=== PATIENT | female | born 1955 | race Caucasian/White ===

== ENCOUNTER 2017-05-14 13:56 | Observation (INO) | payer MEDICARE ==
[2017-05-14] MEDS ORDERED: MORPHINE SULFATE 4 MG/ML SYRINGE IV STA (14:21)
[2017-05-14] MEDS ORDERED: SODIUM CHLORIDE 0.9% 1,000 ML IV STA (14:21)
[2017-05-14] MEDS ORDERED: ASPIRIN 81 MG CHEW PO STA (14:21)
[2017-05-14] MEDS ORDERED: NITROGLYCERIN OINT 1 INCH/GM PACKET TOPICAL STA (14:21)
[2017-05-14] MEDS ORDERED: ONDANSETRON 4 MG/2 ML VIAL IVP STA (14:21)
[2017-05-14 14:46] LABS: Basophils # (A) 0.1 k/uL (0-0.2); Basophils % (A) 1 %; CH 31.8; CHCM 33.4; Eosinophils # (A) 0.2 k/uL (0-0.7); Eosinophils % (A) 1 %; HCT 39.9 % (34.0-46.0); HDW 2.36; HGB 13.1 gm/dL (11.4-16.0); Luc # (Auto) 0.22; Luc % (Auto) 2; Lymphocytes # (A) 4.5 k/uL (1.0-4.8); Lymphocytes % (A) 38 %; MCH 31.3 pg (25.0-35.0); MCHC 32.7 g/dL (31.0-37.0); MCV 95.7 fL (80.0-100.0); Mean Platelet Volume 7.3; Monocytes # (A) 0.5 k/uL (0-1.0); Monocytes % (A) 4 %; Neutrophils # (A) 6.5 k/uL (1.3-7.7); Neutrophils % (A) 54 %; RBC 4.17 m/uL (3.80-5.40); RDW 14.3 % (11.5-15.5); WBC (Perox) 11.66
--- NOTE | 2017-05-14 14:50 | XR ---
EXAMINATION TYPE: XR chest 2V DATE OF EXAM: 05/14/2017 COMPARISON: NONE TECHNIQUE: PA and lateral views submitted. HISTORY: Chest pain FINDINGS: The lungs are clear and there is no pneumothorax, pleural effusion, or focal pneumonia. Mild hypert rophic change of the spine. Biapical pleural thickening. Arthropathy of the AC joints. IMPRESSION: 1. No acute process.
[2017-05-14 14:57] LABS: ALT 28 U/L (9-52); AST 19 U/L (14-36); Alkaline Phosphatase 106 U/L (38-126); Anion Gap 10 mmol/L; Blood Urea Nitrogen 11 mg/dL (7-17); Calcium 9.5 mg/dL (8.4-10.2); Carbon Dioxide 26 mmol/L (22-30); Chloride 106 mmol/L (98-107); Glucose 113 mg/dL (74-99); Magnesium 2.2 mg/dL (1.6-2.3); Non-African American GFR(MDRD) >60 (>60 ml/min/1.73 sqM); Potassium 3.6 mmol/L (3.5-5.1); Sodium 142 mmol/L (137-145); Total Bilirubin 0.7 mg/dL (0.2-1.3); Total Protein 7.3 g/dL (6.3-8.2)
[2017-05-14 15:02] LABS: Creatine Kinase 55 U/L (30-135)
[2017-05-14 15:16] LABS: Creatine Kinase MB 0.6 ng/mL (0.0-2.4); Troponin I <0.012 ng/mL (0.000-0.034)
[2017-05-14 15:18] LABS: INR 0.9 (<1.1); Partial Thromboplastin Time 24.1 sec (22.0-30.0); Prothrombin Time 9.5 sec (9.0-12.0)
--- NOTE | 2017-05-14 15:55 | ED ---
Chest Pain HPI - General Chief Complaint: Chest Pain Stated Complaint: chest pain Time Seen by Provider: 05/14/17 14:09 Source: patient Mode of arrival: ambulatory Limitations: no limitations - History of Present Illness Initial Comments: Chest pain since 8 PM today is quite constant it's nonradiating, is located on the left chest no nausea no vomiting no cold sweats no shortness of breath no pleuritic chest pain. She denies any history of for coronary artery disease. She does have a history of heart disease in her family her dad had KS at the age of 68 systolic KS at the age of 59 and she has smoked for greater than 40 years. This pain is 5-6/10 at this point - Related Data Home Medications Medication Instructions Recorded Confirmed Atorvastatin [Lipitor] 10 mg PO HS 05/14/17 05/14/17 Cyanocobalamin (Vitamin B-12) 1,000 mcg PO HS 05/14/17 05/14/17 [Vitamin B-12] Levothyroxine Sodium [Synthroid] 88 mcg PO DAILY 05/14/17 05/14/17 Vitamin E Acetate [Vitamin E] 200 unit PO HS 05/14/17 05/14/17 traZODone HCL 150 mg PO HS 05/14/17 05/14/17 Allergies Allergy/AdvReac Type Severity Reaction Status Date / Time Beta-Blockers AdvReac RAPHAEL/ASTHMA Verified 05/14/17 14:44 (Beta-Adrenergic Bloc ATTACK Review of Systems ROS Statement: Those systems with pertinent positive or pertinent negative responses have been documented in the HPI. ROS Other: All systems not noted in ROS Statement are negative. EKG Findings - EKG Comments: EKG Findings:: EKG is normal sinus rhythm ventricular rate is 91 ID interval is 136 QRS duration is 86 QT/QTc is 386/74. This EKG does not reveal any ST elevation or ST depression Past Medical History Past Medical History: Hyperlipidemia, Thyroid Disorder Additional Past Medical History / Comment(s): insomnia History of Any Multi-Drug Resistant Organisms: None Reported Past Surgical History: Appendectomy Additional Past Surgical History / Comment(s): thyroid Past Psychological History: Anxiety Smoking Status: Current every day smoker Past Alcohol Use History: None Reported Past Drug Use History: None Reported General Exam - General Exam Comments Initial Comments: General: The patient is awake and alert, in no distress, and does not appear acutely ill. looks bit anxious Skin: Skin is warm and dry and no rashes or lesions are noted. Eye: Pupils are equal, round and reactive to light, extra-ocular movements are intact; there is normal conjunctiva bilaterally. Ears, nose, mouth and throat: There are moist mucous membranes and no oral lesions. Neck: The neck is supple, there is no tenderness or JVD. Cardiovascular: There is a regular rate and rhythm. No murmur, rub or gallop is appreciated. Respiratory: To auscultation bilateral, exam is consistent with moderate to severe COPD Gastrointestinal: Soft, non-distended, non-tender abdomen without masses or organomegaly noted. There is no rebound or guarding present. Bowel sounds are unremarkable. Back: There is no tenderness to palpation in the midline. There is no obvious deformity. Musculoskeletal: Normal ROM, no tenderness, There is no pedal edema. There is no calf tenderness or swelling. No cords were appreciated. Neurological: CN II-XII intact, Cranial nerves III through XII are intact. There are no obvious motor or sensory deficits. Coordination appears grossly intact. Speech is normal. Psychiatric: Cooperative, appropriate mood & affect, normal judgment. Limitations: no limitations Course Vital Signs 05/14/17 05/14/17 14:05 15:01 Temperature 97.6 F Pulse Rate 91 75 Respiratory 20 18 Rate Blood Pressure 123/81 106/64 O2 Sat by Pulse 98 100 Oximetry - Reevaluation(s) Reevaluation #1: 05/14/17 16:15 Was reassessed at 12 1600, white count is slightly elevated d-dimer is negative troponin is negative EKG, compressive metabolic or negative along with the chest x-ray she still continued to have her chest pain. Considering she is 61 and she has smoked for greater than 40 years and she also has a family history of heart disease she should be hospitalized see return agent and will require and heparinize Critical Care Time Total Critical Care Time: 30 Critical Care Time: Considering her multiple risk factors or radiation of smoking or family history and continuous chest pain in the ER she still will be heparinized cardiology be consulted and she be admitted to Dr. Oshea service Disposition Clinical Impression: Chest pain Disposition: ADMITTED IP TO THIS HOSP Condition: Good Referrals: Christine Wynne III, MD [Primary Care Provider] - 1-2 days
[2017-05-14] MEDS ORDERED: HEPARIN SODIUM,PORCINE 5,000 UNIT/ML 1 ML VIAL IV ONE (16:17)
[2017-05-14] MEDS ORDERED: NITROGLYCERIN SL TABS 0.4 MG TAB SUBLINGUAL PRN (16:17)
[2017-05-14] MEDS ORDERED: MORPHINE SULFATE 2 MG/ML SYRINGE IVP PRN (16:17)
[2017-05-14] MEDS ORDERED: HEPARIN SODIUM,PORCINE/D5W PMX 25,000 UNIT in DEXTROSE/WATER 1 500ML.BAG IV SCH (16:30)
[2017-05-14] MEDS: SODIUM CHLORIDE 0.9% 1,000 ML IV SCH (18:43)
[2017-05-14 20:12] LABS: Creatine Kinase 43 U/L (30-135)
[2017-05-14 20:24] LABS: Creatine Kinase MB 0.5 ng/mL (0.0-2.4); Troponin I <0.012 ng/mL (0.000-0.034)
[2017-05-14] MEDS ORDERED: traZODone HCL 50 MG TAB PO SCH (21:00)
[2017-05-14] MEDS ORDERED: CYANOCOBALAMIN 500 MCG TAB PO SCH (21:00)
[2017-05-14] MEDS ORDERED: VITAMIN E (DL,TOCOPHERYL ACET) 400 UNIT CAP PO SCH (21:00)
[2017-05-14] MEDS ORDERED: ATORVASTATIN 40 MG TAB PO SCH (21:00)
[2017-05-15 01:58] LABS: Creatine Kinase 40 U/L (30-135)
[2017-05-15 02:12] LABS: Creatine Kinase MB 0.6 ng/mL (0.0-2.4); Troponin I <0.012 ng/mL (0.000-0.034)
[2017-05-15] MEDS: SODIUM CHLORIDE 0.9% 1,000 ML IV SCH (05:41)
[2017-05-15] MEDS ORDERED: LEVOTHYROXINE 88 MCG TAB PO SCH (06:30)
[2017-05-15 06:59] LABS: Cholesterol 145 mg/dL (<200); Triglycerides 75 mg/dL (<150)
[2017-05-15] MEDS ORDERED: ASPIRIN 325 MG TAB PO SCH (09:00)
--- NOTE | 2017-05-15 09:04 | CONS ---
DATE OF CONSULTATION: Attending, Dr. Wynne: Mrs. Jones is a 61-year-old female with no prior documented history of coronary artery disease who yesterday had an episode of chest discomfort started around 8:00 in the morning lasted until 2:00, better when she rubs on her chest. Because of that she came into the emergency room and subsequently admitted. At the time of my evaluation, she is feeling well. Patient is reasonably active physically, but has been under increased amount of stress and apparently had similar symptoms about a month or so ago in a similar stressful situation. She has no significant dyspnea on exertion. No dizziness. No palpitation. No syncope. No PND or orthopnea or peripheral edema. Her coronary risk factors are positive for smoking about a pack a day. She is not hypertensive. No diabetes documented in the past. She has hyperlipidemia. Her medications at include: Trazodone, vitamin E, levothyroxine, Lipitor 10 mg daily and vitamin B12. REVIEW OF SYSTEMS: RESPIRATORY SYSTEM: She has no recent wheezing. No cough. No history of obstructive lung disease. GI SYSTEM: No recent GI bleeding. No peptic ulcer disease. SYSTEM: No dysuria or hematuria. NERVOUS SYSTEM: No stroke or seizure. PHYSICAL EXAMINATION: She is a 61-year-old female, alert, oriented, in no apparent distress. Blood pressure 113/72 with the heart rate in the 60s. HEAD: Normocephalic. EYES: Sclerae anicteric. NECK: Good upstroke. No bruit. No jugular venous distention. LUNGS: Clear to auscultation. HEART: Regular rate and rhythm. S1, S2, no S3, no rub. Chest wall with mild chest wall tenderness. ABDOMEN: Soft, nontender. EXTREMITIES: No edema. Lab data revealed BUN and creatinine 11 and 0.92. Potassium 3.6. Troponin less than 0.012 for 3 samples. Hemoglobin is 13.1. EKG revealed a sinus mechanism, normal axis with RSR prime with no acute changes. Chest x-ray revealed no evidence of abnormalities. IMPRESSION: 1. Chest discomfort, has some atypical feature for ischemic heart disease, probable musculoskeletal in etiology. 2. History of hyperlipidemia. 3. Chronic tobacco use. RECOMMENDATIONS: I will stop the heparin and proceed with stress echocardiogram. If there is no evidence of inducible ischemia, then no further cardiac workup will be needed. Thank you for this consult. We will follow with you.
[2017-05-15 10:55] LABS: HDL Cholesterol 67 mg/dL (40-60)
[2017-05-15 12:09] VITALS: BP 123/77; PULSE 80; RESP 16; TEMP 98.3
--- NOTE | 2017-05-15 13:51 | ECHOS ---
DATE OF SERVICE: 05/15/2017 AGE: 61Y SEX: F HT: 69" WT: 199 lbs. Protocol Rob: X Others: Stress Echo Stage: 2 Dur. of Exercise: 4:00 *Heart Rate Blood Pressure *Rest: 76 Rest: 118/59 * *Max. Achieved: 143 Maximum BP: 158/57 85% PMHR: 136 100% PMHR: 160 *METS: 6.4 INDICATIONS: Chest pain. MEDICATIONS: Synthroid, Trazodone, atorvastatin. Patient was exercised for a total period of 4 minutes. A peak heart rate of 143 was achieved. Maximum blood pressure of 158/57 mmHg was noted. Resting EKG shows normal sinus rhythm with normal MN interval and QRS duration and normal ST-T waves. No ST segment depression suggestive of ischemia is noted. The baseline echocardiographic images reveals normal left ventricular chamber size with normal left ventricular systolic function. In the immediate postexercise period, normal increase in the wall thickness and contractility is noted. FINAL IMPRESSION: This stress echocardiographic study is negative for stress-induced ischemia. EKG portion of the stress test is not suggestive of ischemia. Patient's exercise tolerance is below-average.
--- NOTE | 2017-05-15 15:30 | HP ---
DATE OF ADMISSION: This dictation is both H&P and Discharge Summary. A 61-year-old female patient came in with complaints of chest pain which appears to be musculoskeletal in nature which is reproducible chest pain, lasted from 8 a.m. in the morning to 2 p.m. in the afternoon. Patient denied any shortness of breath, diaphoresis. Patient's chest pain is nonpleuritic, not associated with food, denied any cough, runny nose. Patient underwent stress test, if it is negative, patient will be discharged. Patient was evaluated by Cardiology. Patient was ruled out acute coronary artery syndromes and EKG and troponins are negative. EKG is no significant abnormality. No orthopnea, PND. REVIEW OF SYSTEMS: CONSTITUTIONAL: No fever, no malaise, no fatigue. HEENT: No recent visual problems or hearing problems. Denied any sore throat. CARDIOVASCULAR: As described in HPI. PULMONARY: No shortness of breath, no cough, no hemoptysis. GASTROINTESTINAL: No diarrhea, no nausea, no vomiting, no abdominal pain. Normoactive bowel sounds. NEUROLOGICAL: No headaches, no weakness, no numbness. HEMATOLOGICAL: Denies any bleeding or petechiae. GENITOURINARY: Denies any burning micturition, frequency, or urgency. MUSCULOSKELETAL/RHEUMATOLOGICAL: Denies any joint pain, swelling, or any muscle pain. ENDOCRINE: Denies any polyuria or polydipsia. The rest of the 14 point review of systems is negative. PAST MEDICAL HISTORY: Significant for hyperlipidemia, hypothyroidism, osteoarthritis, appendectomy, section, hysterectomy, claustrophobia, motion sickness, anxiety disorder. FAMILY HISTORY: Denied any premature coronary artery disease. Mom at age 93. No significant medical problems in her mother. SOCIAL HISTORY: The patient does smoke 1 pack per day. Denied any alcohol abuse or any drug abuse. PHYSICAL EXAMINATION: Temperature 99.2, pulse 82, respiratory rate of 16, blood pressure is 104/73, saturating at 91% on room air. GENERAL: The patient is alert and oriented x3, not in any acute distress. Well developed, well nourished. HEENT: Pupils are round and equally reacting to light. EOMI. No scleral icterus. No conjunctival pallor. Normocephalic, atraumatic. No pharyngeal erythema. No thyromegaly. CARDIOVASCULAR: S1 and S2 present. No murmurs, rubs, or gallops. PULMONARY: Patient has good air entry into bilateral lung levy. No wheezing was appreciated. No crackles. ABDOMEN: Soft, nontender, nondistended, normoactive bowel sounds. No palpable organomegaly. MUSCULOSKELETAL: Patient does have pedal edema bilaterally, appears to have some chronic venostasis dermatosis. EXTREMITIES: No cyanosis, clubbing, or pedal edema. NEUROLOGICAL: Gross neurological examination did not reveal any focal deficits. SKIN: No rashes. LABORATORY DATA: CBC and BMP are abnormal for elevated WBC count of 12,000. D-dimer is negative. Chest x-ray did not show any pneumonic process. ASSESSMENT AND PLAN: 1. Chest pain. Rule out acute coronary artery syndrome. Patient underwent stress test. Patient will be discharged today, probably musculoskeletal in nature. 2. Leukocytosis. No signs or symptoms of infection. Appeared to be reactive response. 3. Hyperlipidemia. 4. Nicotine abuse. Patient will continue her home medication. Patient is on atorvastatin for that. Patient will continue with that. 5. Hypothyroidism. Continue with levothyroxine. Further management as an outpatient. 6. Nicotine abuse. Extensive counseling regarding that was provided and then patient will be discharged today to follow with primary care physician, Dr. Radha Wynne in 3 to 7 days. Activity as tolerated. Cardiac diet. 7. Nicotine cessation counseling was provided. This dictation is both H&P and discharge summary. [facility]
== END 2017-05-15 14:37 | disposition home or self-care (01) ==
LOC: EC 13:56 → 3OBS 16:17
PROVIDERS: ADMIT Hospitalist; ATTEND Hospitalist
DX: R07.9 Chest pain, unspecified (principal); D72.829 Elevated white blood cell count, unspecified; E78.5 Hyperlipidemia, unspecified; Z71.6 Tobacco abuse counseling; E03.9 Hypothyroidism, unspecified; F41.9 Anxiety disorder, unspecified; I25.9 Chronic ischemic heart disease, unspecified; F40.240 Claustrophobia; Z79.899 Other long term (current) drug therapy; F17.210 Nicotine dependence, cigarettes, uncomplicated; Z82.49 Family history of ischemic heart disease and other diseases of the circulatory system; Z90.710 Acquired absence of both cervix and uterus
CPT/HCPCS: 96375 ×3; 96376 ×2; 96365 ×2; 99291 ×2; 96366; 96367; 36415; 93005; 93017; 93350; 85379; 80061; 80053; 82550 ×2; 82553 ×2; 83735; 84484 ×2; 85025; 85610; 85730 ×2; 71020; G0378 ×2; J2270; J1644 ×2; J2405

== ENCOUNTER → 2017-11-19 | Outpatient (CLI) | payer MEDICARE ==
--- NOTE | 2017-11-20 09:07 | MM ---
Reason for exam: screening (asymptomatic). Last mammogram was performed 10 years and 11 months ago. History: Patient is postmenopausal. Physical Findings: A clinical breast exam by your physician is recommended on an annual basis and results should be correlated with mammographic findings. MG Screening Mammo w CAD Bilateral CC and MLO view(s) were taken. Prior study comparison: January 03, 2007, CAD bilateral diagnostic mammogram. There are scattered fibroglandular densities. There are typically benign round calcifications bilaterally. Focal asymmetry 6mm anterior outer aspect. This finding is changed when compared with previous exams. ASSESSMENT: Incomplete: need additional imaging evaluation, BI-RAD 0 RECOMMENDATION: Special view mammogram of the left breast. If lesion persists on supplemental views, image directed ultrasound is recommended. [facility] will attempt to contact patient to return for supplemental views and ultrasound if indicated.
== END | disposition home or self-care (01) ==
LOC: RADMAMWWP 13:00
PROVIDERS: ATTEND Family Medicine
DX: Z12.31 Encounter for screening mammogram for malignant neoplasm of breast (principal)

== ENCOUNTER → 2018-12-03 | Outpatient (CLI) | payer MEDICARE ==
--- NOTE | 2018-12-03 15:09 | XR ---
EXAMINATION TYPE: XR knee complete LT DATE OF EXAM: 12/03/2018 COMPARISON: NONE HISTORY: Pain TECHNIQUE: Four views are submitted. FINDINGS: Joint spaces are preserved. Osseous structures are intact. No acute fracture seen. Small suprapate llar bursal fluid collection. IMPRESSION: 1. No acute fracture or dislocation. Small suprapatellar bursal fluid collection. Correlate with MRI if there is concern for internal derangement.
== END ==
LOC: RADXRMAIN 13:23
PROVIDERS: ATTEND Physician Assistant Medical
DX: M17.12 Unilateral primary osteoarthritis, left knee (principal)

== ENCOUNTER → 2019-01-05 | Outpatient (CLI) | payer MEDICARE ==
--- NOTE | 2019-01-05 09:56 | MM ---
Reason for exam: additional evaluation requested from prior study. Last mammogram was performed 1 year and 2 months ago. History: Patient is postmenopausal. Physical Findings: Nurse did not find any significant physical abnormalities on exam. MG 3D Diag Mammo W/Cad SARAY Bilateral CC and MLO view(s) were taken. Prior study comparison: November 19, 2017, bilateral MG screening mammo w CAD. January 03, 2007, CAD bilateral diagnostic mammogram. The breast tissue is heterogeneously dense. This may lower the sensitivity of mammography. There are benign appearing round calcifications bilaterally. There is chronic nodularity bilaterally, greater in the right breast. There is no dominant lesion. These results were verbally communicated with the patient and result sheet given to the patient on 01/05/19. ASSESSMENT: Benign, BI-RAD 2 RECOMMENDATION: Routine screening mammogram of both breasts in 1 year.
== END ==
LOC: RADMAMWWP 08:49
PROVIDERS: ATTEND Family Medicine
DX: R92.8 Other abnormal and inconclusive findings on diagnostic imaging of breast (principal)
CPT/HCPCS: 77066; G0279; 77062

== ENCOUNTER → 2019-09-28 | Outpatient (CLI) | payer MEDICARE ==
--- NOTE | 2019-09-28 16:23 | MR ---
EXAMINATION TYPE: MR knee LT wo con DATE OF EXAM: 09/28/2019 COMPARISON: None HISTORY: Left knee pain TECHNIQUE: Multiplanar, multisequence images of the knee is performed without IV contrast. FINDINGS: MEDIAL MENISCUS: Mild diffuse uptake is within the posterior horn medial meniscus. This hasn't angula beto course in the posterior horn without communication with the articular surface. Anterior horn medi al meniscus appears normal. LATERAL MENISCUS: There is increased signal within the anterior portion posterior horn lateral menisc us compatible with internal derangement. Anterior horn of the lateral meniscus is normal. CRUCIATE LIGAMENTS: The anterior and posterior cruciate ligaments are intact and unremarkable. COLLATERAL LIGAMENTS: The medial collateral ligament and lateral collateral ligament complex are inta ct and unremarkable. EXTENSOR MECHANISM: Visualized quadriceps and patellar tendons are intact. EFFUSION: Small joint effusion is present. POPLITEAL CYST: No popliteal/schmid cyst. TRICOMPARTMENT SPACES: Joint spaces appear preserved. CARTILAGE: Articular cartilage appears preserved. BONE MARROW SIGNAL: No focal abnormal marrow signal is appreciated. OTHER: No additional significant abnormality is appreciated. IMPRESSION: 1. Type I internal arrangement posterior horns medial and lateral menisci. 2. Small joint effusion.
== END | disposition home or self-care (01) ==
LOC: RADMRIMAIN 13:20
PROVIDERS: ATTEND Orthopaedic Surgery
DX: M25.462 Effusion, left knee (principal)

== ENCOUNTER → 2019-10-30 | Outpatient (CLI) | payer MEDICARE ==
[2019-10-30 16:17] LABS: Basophils % (A) 0 %; Eosinophils # (A) 0.1 k/uL (0-0.7); Eosinophils % (A) 1 %; HCT 39.1 % (34.0-46.0); HGB 13.1 gm/dL (11.4-16.0); Lymphocytes % (A) 35 %; MCH 31.3 pg (25.0-35.0); MCHC 33.4 g/dL (31.0-37.0); MCV 93.6 fL (80.0-100.0); Mean Platelet Volume 7.5; Monocytes # (A) 0.3 k/uL (0-1.0); Monocytes % (A) 4 %; Neutrophils % (A) 58 %; Platelet Count 236 k/uL (150-450); RBC 4.18 m/uL (3.80-5.40); RDW 13.9 % (11.5-15.5); WBC 8.6 k/uL (3.8-10.6)
[2019-10-30 16:31] LABS: Potassium 3.7 mmol/L (3.5-5.1)
== END ==
LOC: LABPAT 14:50
PROVIDERS: ATTEND Orthopaedic Surgery
DX: Z01.818 Encounter for other preprocedural examination (principal); M23.92 Unspecified internal derangement of left knee; R94.31 Abnormal electrocardiogram [ECG] [EKG]
CPT/HCPCS: 80051; 85025; 93005

== ENCOUNTER → 2019-11-20 | Day surgery (SDC) | payer MEDICARE ==
[2019-11-18 10:49] VITALS: BMI 25.8
--- NOTE | 2019-11-19 10:09 | HP ---
HISTORY AND PHYSICAL CHIEF COMPLAINT: Left knee pain. HISTORY OF PRESENT ILLNESS: Patient is a 63-year-old retired female who presents with progressive left knee pain for the past several months. She notes anterior medial pain along with intermittent locking. She has tried medications in addition to activity modifications without much relief. She notes it does limit her. PAST MEDICAL HISTORY: Significant for hypothyroidism. PAST SURGICAL HISTORY: Negative. CURRENT MEDICATIONS: 1. Aleve. 2. Atorvastatin. 3. Levothyroxine. 4. Tramadol. 5. Trazodone. ALLERGIES: She has sensitivity to BETA WENDY, however, gerard drug allergy. FAMILY HISTORY: Significant for heart disease. SOCIAL HISTORY: Significant for one pack per day tobacco use. REVIEW OF SYSTEMS: Sixteen-point review of systems otherwise reviewed and is noncontributory. PHYSICAL EXAMINATION: On examination today, the patient is approximately 5 feet 9 inches, 180 pounds of mesomorphic habitus. HEENT exam is nonfocal. Neck is supple. She has painless passive motion of left hip. Straight leg raise is negative. Active motion left knee -10 to 135 degrees of flexion. She has a mild effusion. She is tender about the lateral joint line. Collaterals are stable, Gillian is negative, Red's elicits lateral pain. Her distal neurovascular exam appears intact in the left lower extremity. MRI report, 09/28/2019, left knee shows evidence of increased signal involving the posterior horn of the medial and lateral menisci along with a defect involving the distal medial femoral condyle. IMPRESSION: 1. Internal derangement left knee possible lateral meniscal tear and medial femoral condyle chondral injury. 2. Left knee tricompartmental osteoarthrosis. RECOMMENDATIONS: I talked to the patient at length regarding her condition along with treatment options. At this point, she is symptomatic, having pain and mechanical symptoms that limit her. After a thorough discussion, she opts to proceed with surgery. We will proceed with arthroscopic evaluation with possible partial lateral meniscectomy in addition to medial femoral chondrectomy. The risks and benefits were discussed at length in layman's terms. We will likely perform that as an outpatient procedure. MMODL / IJN: [id number] /
[~2019-11-20] MED LIST: DEXAMETHASONE SOD PHOS (MDV) 100 MG/10 ML VIAL ONE; DEXAMETHASONE SOD PHOSPHATE 10 MG/ML 1 ML VIAL IV ONE; EPINEPHrine (PF) 1 ML in SODIUM CHLORIDE 0.9% IRRIGATIO 3,000 ML IRRIGATION ONE; HYDROcodone/APAP 5-325MG 1 EACH TAB PO ONE; HYDROmorphone 0.5 MG/0.5 ML SYRINGE IVP PRN; KETOROLAC 30 MG/ML 1 ML VIAL ONE; LACTATED RINGERS 1,000 ML IV ONE; LACTATED RINGERS 1,000 ML IV SCH; LIDOCAINE 1% 20 ML VIAL (10MG/ML) FOR IV START INTRADERMA ONE; MIDAZOLAM 2 MG/2 ML VIAL IV PRN; MIDAZOLAM 2 MG/2 ML VIAL ONE; PROPOFOL 10 MG/ML 20 ML VIAL IV ONE; SCOPOLAMINE 1.5MG/72HR PATCH TRANSDERM ONE; ePHEDrine SULFATE/0.9% NACL/PF 50 MG/5 ML SYRINGE IV ONE; fentaNYL (PF) 50 MCG/ML 2 ML AMP ONE
[2019-11-20 08:46] VITALS: TEMP 97.6
[2019-11-20] MEDS: ONDANSETRON 4 MG/2 ML VIAL IVP ONE ×2 (09:10→11:20)
--- NOTE | 2019-11-20 11:00 | P.OP ---
Date of Procedure: 11/20/19 Preoperative Diagnosis: left knee internal derangement Postoperative Diagnosis: left knee posterior medial meniscal tear/posterior lateral meniscal tear/grade 3 chondral injury medial femoral condyle Procedure(s) Performed: left knee arthroscopic partial medial meniscectomy/partial lateral meniscectomy/medial femoral chondrectomy/microfracture medial femoral condyle Anesthesia: CLARE Surgeon: Serafin Lim Estimated Blood Loss (ml): 10 Pathology: none sent Condition: stable Disposition: PACU Indications for Procedure: The patient is a 63-year-old female presents with persistent/progressive left knee pain and mechanical symptoms despite conservative measures. A discussion of the risks and benefits of operative intervention versus continued conservative measures was made with patient. She opted to proceed with surgery. Operative risks to include infection, neurovascular injury, development of blood clots, possible incomplete resolution of symptoms, possible worsening symptoms and need for subsequent procedures was discussed. Informed consent was obtained. Operative Findings: as below Description of Procedure: The patient was brought to the operating room, and after induction of general anesthesia examined the left knee. Collaterals were stable, Gillian was negative, and posterior drawer was negative. The left lower extremity was prepped and draped in a normal fashion. A lateral portal was made through a 5 mm vertical skin incision lateral to the patella tendon above the joint line. Diagnostic arthroscopy was performed. On inspection of the medial compartment, and oblique tear involving the posterior horn medial meniscus in the white-white junction was noted]. This was debrided back to stable base with straight baskets and a motorized shaver. a grade 3 chondral injury involving the central posterior portion of the medial femoral condyle was noted with a loose chondral fragment. This was debrided back to stable base with a motorized shaver. Microfracture was performed with a power pick breeching the subchondral surface down to the bone marrow elements. On inspection of the notch, the anterior cruciate ligament appeared to be intact. On inspection of the lateral compartment, and oblique tear involving the posterior most aspect of the lateral meniscus in the white-red junction was noted. this was not amenable to repair. This debrided back to stable base with straight baskets and a motorized shaver. On inspection of the patellofemoral articulation, grade 2 chondral changes were noted diffusely however no loose cartilage fragments were present. The gutters were clear debris. The knee was then thoroughly irrigated. The portals were closed with Steri-Strips. A sterile dressing was applied in addition to a compression stocking. The patient was awoken from general anesthesia and transferred to recovery room in good condition. Blood loss was estimated at 10 mL. No complications were incurred.
[2019-11-20 11:35] VITALS: BP 116/71; PULSE 96; RESP 17
== END | disposition home or self-care (01) ==
LOC: OR 08:24
PROVIDERS: ATTEND Orthopaedic Surgery
DX: S83.282A Other tear of lateral meniscus, current injury, left knee, initial encounter (principal); S83.242A Other tear of medial meniscus, current injury, left knee, initial encounter; S83.32XA Tear of articular cartilage of left knee, current, initial encounter; X58.XXXA Exposure to other specified factors, initial encounter; E03.9 Hypothyroidism, unspecified; E78.5 Hyperlipidemia, unspecified; M19.90 Unspecified osteoarthritis, unspecified site; F17.210 Nicotine dependence, cigarettes, uncomplicated; Z90.710 Acquired absence of both cervix and uterus; Z79.1 Long term (current) use of non-steroidal anti-inflammatories (NSAID); Z79.890 Hormone replacement therapy; Z79.891 Long term (current) use of opiate analgesic; Z79.899 Other long term (current) drug therapy; Z88.8 Allergy status to other drugs, medicaments and biological substances
CPT/HCPCS: 29880; 29879; J2250; J1100 ×2; J0690; J2405; J0171; J3010; J1885; J2704; J1170

== ENCOUNTER → 2020-02-17 | Outpatient (CLI) | payer MEDICARE ==
--- NOTE | 2020-02-18 09:10 | MM ---
Reason for exam: screening (asymptomatic). Last mammogram was performed 1 year and 1 month ago. History: Patient is postmenopausal. Physical Findings: A clinical breast exam by your physician is recommended on an annual basis and results should be correlated with mammographic findings. MG 3D Screening Mammo W/Cad Bilateral CC and MLO view(s) were taken. XCCL view(s) were taken of the right breast. Prior study comparison: January 05, 2019, bilateral MG 3d diag mammo w/cad SARAY. November 19, 2017, bilateral MG screening mammo w CAD. The breast tissue is heterogeneously dense. This may lower the sensitivity of mammography. There are benign appearing round dystrophic calcifications bilaterally. There is no discrete abnormality. ASSESSMENT: Benign, BI-RAD 2 RECOMMENDATION: Routine screening mammogram of both breasts in 1 year.
== END | disposition home or self-care (01) ==
LOC: RADMAMWWP 12:34
PROVIDERS: ATTEND Family Medicine
DX: Z12.31 Encounter for screening mammogram for malignant neoplasm of breast (principal)
CPT/HCPCS: 77063; 77067

== ENCOUNTER → 2020-06-02 | Outpatient (CLI) | payer MEDICARE ==
--- NOTE | 2020-06-03 07:45 | US ---
EXAMINATION TYPE: US thyroid st tissue head/neck DATE OF EXAM: 06/02/2020 COMPARISON: NONE CLINICAL HISTORY: E03.9 HYPOTHYROIDISM. Thyroidectomy 8-9 years ago, hypothyroidism GLAND SIZE: Right Lobe: Surgically absent Left Lobe: Surgically absent NODULES RIGHT: # of nodules measured on right: 0 LEFT: # of nodules measured on left: 0 ISTHMUS: # of nodules measured in the isthmus: 0 Bilateral neck scanned, lymph nodes left neck with largest = 2.3cm Ultrasound performed in the thyroid bed. No residual thyroid tissue is present. IMPRESSION: Postop change.
== END ==
LOC: RADUSWWP 15:41
PROVIDERS: ATTEND Family Medicine
DX: E03.9 Hypothyroidism, unspecified (principal); Z98.890 Other specified postprocedural states
CPT/HCPCS: 76536

== ENCOUNTER 2022-01-28 11:09 | Emergency (ER) | payer MEDICARE ==
[2022-01-28 11:29] VITALS: RESP 16
[2022-01-28] MEDS ORDERED: SODIUM CHLORIDE 0.9% 1,000 ML IV STA (11:55)
[2022-01-28] MEDS ORDERED: ONDANSETRON 4 MG/2 ML VIAL IVP STA (12:10)
[2022-01-28] MEDS ORDERED: MORPHINE SULFATE 4 MG/ML SYRINGE IV STA (12:10)
--- NOTE | 2022-01-28 12:16 | ED ---
Abdominal Pain HPI - General Chief Complaint: Abdominal Pain Stated Complaint: Groin Pain/Low Sugar Time Seen by Provider: 01/28/22 11:53 Source: patient, RN notes reviewed Mode of arrival: ambulatory Limitations: no limitations - History of Present Illness Initial Comments: Right lower quadrant abdominal pain for one week. Was vomiting at onset. Zabrina ent states she also had a fever early in the week. No headache, no fever or chills, no changes in vision or hearing, no sore throat or difficulty with speech, no neck pain, no chest pain or shortness of breath, no changes in urination or bowel movements, no numbness or tingling, no extr emity pain, no skin rashes or lesions. MD Complaint: abdominal pain Onset/Timin -: week(s) Location: RLQ Radiation: other (Midabdomen) Migration to: no migration Severity: moderate Severity scale (1-10): 6 Quality: dull Consistency: constant Improves With: nothing Worsens With: other (Palpation, position) Associated Symptoms: nausea, vomiting, constipation (Patient did have a bowel movement this morning and is passing gas) - Related Data Home Medications Medication Instructions Recorded Confirmed Atorvastatin [Lipitor] 20 mg PO HS 05/14/17 11/20/19 Levothyroxine Sodium [Synthroid] 88 mcg PO QAM 05/14/17 11/20/19 traZODone HCL 200 mg PO HS 05/14/17 11/20/19 Vit C/E/Zn/Coppr/Lutein/Zeaxan 1 each PO DAILY 11/18/19 11/20/19 [Preservision Areds 2 Softgel] traMADol HCL 50 mg PO HS 11/18/19 11/20/19 Previous Rx's Medication Instructions Recorded Hydrocodone/Acetaminophen [[place] 1 each PO Q6HR PRN #15 tab 11/20/19 5-325] Acetaminophen [Tylenol] 500 mg PO Q4-6H PRN #24 tab 01/28/22 Amoxicillin/Potassium Clav 1 each PO Q12HR #20 tab 01/28/22 [Augmentin 875-125 Tablet] Ondansetron [Zofran ODT] 4 mg PO Q8HR #20 tab 01/28/22 Allergies Allergy/AdvReac Type Severity Reaction Status Date / Time Beta-Blockers AdvReac RAPHAEL/ASTHMA Verified 01/28/22 11:29 (Beta-Adrenergic Bloc ATTACK Review of Systems ROS Statement: Those systems with pertinent positive or pertinent negative responses have been documented in the HPI. ROS Other: All systems not noted in ROS Statement are negative. Past Medical History Past Medical History: Hyperlipidemia, Osteoarthritis (OA), Thyroid Disorder Additional Past Medical History / Comment(s): insomnia, migraines, cataracts, thyroid nodules(thryoid removed) History of Any Multi-Drug Resistant Organisms: None Reported Past Surgical History: Appendectomy, Section, Hysterectomy Additional Past Surgical History / Comment(s): thyroid bx ,thyroidectomy, PARTIAL HYSTERECTOMY Past Anesthesia/Blood Transfusion Reactions: Motion Sickness Additional Past Anesthesia/Blood Transfusion Reaction / Comment(s): clausterphobia Past Psychological History: Anxiety Smoking Status: Current every day smoker Past Alcohol Use History: Rare Past Drug Use History: None Reported - Past Family History Mother Family Medical History: Cancer Additional Family Medical History / Comment(s): Alive, 95 yrs old. Father Family Medical History: No Reported History Additional Family Medical History / Comment(s): at age 89. Sister(s) Family Medical History: Cancer Additional Family Medical History / Comment(s): "Hx cancerous cells." General Exam Limitations: no limitations Course Vital Signs 01/28/22 01/28/22 11:26 14:55 Temperature 98.2 F 98.4 F Pulse Rate 90 89 Respiratory 16 16 Rate Blood Pressure 106/75 110/78 O2 Sat by Pulse 99 99 Oximetry - Reevaluation(s) Reevaluation #1: 01/28/22 14:25 Medical record is reviewed Symptoms are improved here in the emergency department Patient is informed of results and questions answered Patient in no distress Medical Decision Making - Medical Decision Making Patient presents with right lower quadrant pain for the last week. Patient is tender in this area. Patient had her appendix removed as a teenager. Patient has also had a previous hysterectomy. Subjective fever during the week. Abdominal workup ordered. Patient does have some indication of bowel wall thickening as well as possible colitis. Computed tomography scan was reviewed. Going to cover the patient wit h antibiotics and have her follow-up with general surgery. Patient concurs with this treatment plan. All findings discussed, all questions answered. - Lab Data Result diagrams: 01/28/22 12:16 01/28/22 12:16 Lab Results 01/28/22 01/28/22 01/28/22 Range/Units 12:16 12:16 12:16 WBC 4.1 (3.8-10.6) k/uL RBC 4.43 (3.80-5.40) m/uL Hgb 14.1 (11.4-16.0) gm/dL Hct 42.2 (34.0-46.0) % MCV 95.3 (80.0-100.0) fL MCH 31.9 (25.0-35.0) pg MCHC 33.4 (31.0-37.0) g/dL RDW 14.4 (11.5-15.5) % Plt Count 141 L (150-450) k/uL MPV 9.4 Neutrophils % 58 % Lymphocytes % 33 % Monocytes % 6 % Eosinophils % 0 % Basophils % 1 % Neutrophils # 2.3 (1.3-7.7) k/uL Lymphocytes # 1.3 (1.0-4.8) k/uL Monocytes # 0.2 (0-1.0) k/uL Eosinophils # 0.0 (0-0.7) k/uL Basophils # 0.0 (0-0.2) k/uL Sodium 138 (137-145) mmol/L Potassium 4.1 (3.5-5.1) mmol/L Chloride 105 (98-107) mmol/L Carbon Dioxide 25 (22-30) mmol/L Anion Gap 8 mmol/L BUN 11 (7-17) mg/dL Creatinine 0.95 (0.52-1.04) mg/dL Est GFR (CKD-EPI)AfAm 73 (>60 ml/min/1.73 sqM) Est GFR (CKD-EPI)NonAf 63 (>60 ml/min/1.73 sqM) Glucose 99 (74-99) mg/dL Plasma Lactic Acid Arvin (0.7-2.0) mmol/L Calcium 8.5 (8.4-10.2) mg/dL Total Bilirubin 0.7 (0.2-1.3) mg/dL AST 26 (14-36) U/L ALT 20 (4-34) U/L Alkaline Phosphatase 102 (38-126) U/L C-Reactive Protein <0.5 (<1.0) mg/dL Total Protein 6.8 (6.3-8.2) g/dL Albumin 3.9 (3.5-5.0) g/dL Lipase 309 H (23-300) U/L Urine Color Yellow Urine Appearance Clear (Clear) Urine pH 7.0 (5.0-8.0) Ur Specific [place] 1.021 (1.001-1.035) Urine Protein Trace H (Negative) Urine Glucose (UA) Negative (Negative) Urine Ketones Negative (Negative) Urine Blood Negative (Negative) Urine Nitrite Negative (Negative) Urine Bilirubin Negative (Negative) Urine Urobilinogen <2.0 (<2.0) mg/dL Ur Leukocyte Esterase Trace H (Negative) Urine RBC 18 H (0-5) /hpf Urine WBC 2 (0-5) /hpf Ur Squamous Epith Cells 2 (0-4) /hpf Urine Mucus Rare H (None) /hpf 01/28/22 Range/Units 12:16 WBC (3.8-10.6) k/uL RBC (3.80-5.40) m/uL Hgb (11.4-16.0) gm/dL Hct (34.0-46.0) % MCV (80.0-100.0) fL MCH (25.0-35.0) pg MCHC (31.0-37.0) g/dL RDW (11.5-15.5) % Plt Count (150-450) k/uL MPV Neutrophils % % Lymphocytes % % Monocytes % % Eosinophils % % Basophils % % Neutrophils # (1.3-7.7) k/uL Lymphocytes # (1.0-4.8) k/uL Monocytes # (0-1.0) k/uL Eosinophils # (0-0.7) k/uL Basophils # (0-0.2) k/uL Sodium (137-145) mmol/L Potassium (3.5-5.1) mmol/L Chloride (98-107) mmol/L Carbon Dioxide (22-30) mmol/L Anion Gap mmol/L BUN (7-17) mg/dL Creatinine (0.52-1.04) mg/dL Est GFR (CKD-EPI)AfAm (>60 ml/min/1.73 sqM) Est GFR (CKD-EPI)NonAf (>60 ml/min/1.73 sqM) Glucose (74-99) mg/dL Plasma Lactic Acid Arvin 0.7 (0.7-2.0) mmol/L Calcium (8.4-10.2) mg/dL Total Bilirubin (0.2-1.3) mg/dL AST (14-36) U/L ALT (4-34) U/L Alkaline Phosphatase (38-126) U/L C-Reactive Protein (<1.0) mg/dL Total Protein (6.3-8.2) g/dL Albumin (3.5-5.0) g/dL Lipase (23-300) U/L Urine Color Urine Appearance (Clear) Urine pH (5.0-8.0) Ur Specific [place] (1.001-1.035) Urine Protein (Negative) Urine Glucose (UA) (Negative) Urine Ketones (Negative) Urine Blood (Negative) Urine Nitrite (Negative) Urine Bilirubin (Negative) Urine Urobilinogen (<2.0) mg/dL Ur Leukocyte Esterase (Negative) Urine RBC (0-5) /hpf Urine WBC (0-5) /hpf Ur Squamous Epith Cells (0-4) /hpf Urine Mucus (None) /hpf Disposition Clinical Impression: Lower abdominal pain, Diverticulosis, sigmoid, Liver cyst, Adrenal cortical adenoma of right adrenal gland Narrative: Patient requesting Dr. Tijerina Disposition: HOME SELF-CARE Condition: Stable Instructions (If sedation given, give patient instructions): Diverticulosis (ED), Abdominal Pain (ED) Additional Instructions: CAT scan also shows a cyst on your liver which could be what is called a hemangioma. Follow-up with your regular physician regarding this. There also is a cyst on your right adrenal gland. Diverticulosis is also seen in your sigmoid colon. Follow with the surgeon tomorrow morning. Follow-up with your regular physician as directed. Return to the ER immediately if any symptoms worsen, new symptoms arise, or any other problems develop. Prescriptions: Amoxicillin/Potassium Clav [Augmentin 875-125 Tablet] 1 each PO Q12HR #20 tab Acetaminophen [Tylenol] 500 mg PO Q4-6H PRN #24 tab PRN Reason: Pain Ondansetron [Zofran ODT] 4 mg PO Q8HR #20 tab Is patient prescribed a controlled substance at d/c from ED?: No Referrals: Akiko Vences MD [Primary Care Provider] - 1-2 days Desi Tijerina MD [STAFF PHYSICIAN] - 1-2 days Time of Disposition: 14:32
[2022-01-28 12:32] LABS: Basophils % (A) 1 %; Eosinophils % (A) 0 %; HCT 42.2 % (34.0-46.0); HGB 14.1 gm/dL (11.4-16.0); Lymphocytes # (A) 1.3 k/uL (1.0-4.8); Lymphocytes % (A) 33 %; MCH 31.9 pg (25.0-35.0); MCHC 33.4 g/dL (31.0-37.0); MCV 95.3 fL (80.0-100.0); Mean Platelet Volume 9.4; Monocytes # (A) 0.2 k/uL (0-1.0); Monocytes % (A) 6 %; Neutrophils # (A) 2.3 k/uL (1.3-7.7); Neutrophils % (A) 58 %; Platelet Count 141 k/uL (150-450); RBC 4.43 m/uL (3.80-5.40); RDW 14.4 % (11.5-15.5); WBC 4.1 k/uL (3.8-10.6)
[2022-01-28 12:49] LABS: ALT 20 U/L (4-34); AST 26 U/L (14-36); African American GFR (CKD) 73 (>60 ml/min/1.73 sqM); Albumin 3.9 g/dL (3.5-5.0); Alkaline Phosphatase 102 U/L (38-126); Anion Gap 8 mmol/L; Blood Urea Nitrogen 11 mg/dL (7-17); C Reactive Protein <0.5 mg/dL (<1.0); Calcium 8.5 mg/dL (8.4-10.2); Carbon Dioxide 25 mmol/L (22-30); Chloride 105 mmol/L (98-107); Glucose 99 mg/dL (74-99); Lipase 309 U/L (23-300); Non-African American GFR(CKD) 63 (>60 ml/min/1.73 sqM); Potassium 4.1 mmol/L (3.5-5.1); Sodium 138 mmol/L (137-145); Total Bilirubin 0.7 mg/dL (0.2-1.3); Total Protein 6.8 g/dL (6.3-8.2)
[2022-01-28 13:12] LABS: Appearance,Urine Clear (Clear); Bilirubin,Urine Negative (Negative); Blood,Urine Negative (Negative); Color,Urine Yellow; Glucose,Urine (UA) Negative (Negative); Ketones,Urine Negative (Negative); Leukocyte Esterase,Urine Trace (Negative); Mucus,Urine Rare /hpf; Nitrite,Urine Negative (Negative); Protein,Urine Trace (Negative); RBC,Urine 18 /hpf (0-5); Specific Gravity,Urine 1.021 (1.001-1.035); Squamous Epithelial Cell,Urine 2 /hpf (0-4); Urobilinogen,Urine <2.0 mg/dL (<2.0); WBC,Urine 2 /hpf (0-5)
--- NOTE | 2022-01-28 13:50 | CT ---
EXAMINATION TYPE: CT abdomen pelvis w con DATE OF EXAM: 01/28/2022 COMPARISON: None HISTORY: Rt lower quad pain CT DLP: 1091.5 mGycm Automated exposure control for dose reduction was used. TECHNIQUE: Helical acquisition of images from the lung bases through the pelvis have been completed. CONTRAST: Performed without Oral Contrast and with IV Contrast, patient injected with 100 mL of Isovue 300. FINDINGS: Possible hiatal hernia present. LUNG BASES: No significant abnormality is appreciated. AORTA: Atheromatous changes are present within the aorta.. LIVER/GB: Within the liver towards the dome anteriorly, axial image 8 there is a hyperintense focus o n immediate imaging which is somewhat more isodense on delayed imaging measuring approximately 17 mm which may represent flash filling hemangioma but is indeterminate, axial image #8. Hypodense focus on axial image 13 statistically is likely represent a cyst and measures only 12 mm, additional focus pr esent adjacent to the inferior vena cava measuring 14 mm PANCREAS: No significant abnormality is seen. SPLEEN: No significant abnormality is seen. ADRENALS: Low dense right adrenal mass measures 3 cm may represent adenoma. KIDNEYS: Some cortical cystic foci are subcentimeter in size, indeterminate. REPRODUCTIVE ORGANS: Not seen BOWEL: Thickened small bowel folds are indeterminate. Diverticular changes are present within the si gmoid colon, descending colon FREE AIR: No Free Air visible. ASCITES: None visible. PELVIC ADENOPATHY: None visualized. RETROPERITONEAL ADENOPATHY: No Retroperitoneal Adenopathy visible. URINARY BLADDER: No significant abnormality is seen. OSSEOUS STRUCTURES: Degenerative disc disease, facet arthropathy. IMPRESSION: CORRELATE FOR ENTERITIS. There is possible right adrenal adenoma, indeterminate lesion within the nicole er. Diverticulosis and additional findings above.
[2022-01-28] MEDS ORDERED: AMOXIC-POT CLAV 875-125MG 1 EACH TAB PO STA (14:24)
[2022-01-28 15:12] VITALS: BP 110/78; PULSE 89; TEMP 98.4
== END 2022-01-28 15:00 | disposition home or self-care (01) ==
LOC: EC 11:09
DX: K57.30 Diverticulosis of large intestine without perforation or abscess without bleeding (principal); K76.89 Other specified diseases of liver; D35.01 Benign neoplasm of right adrenal gland; E78.5 Hyperlipidemia, unspecified; M19.90 Unspecified osteoarthritis, unspecified site; F41.9 Anxiety disorder, unspecified; F17.200 Nicotine dependence, unspecified, uncomplicated; E07.9 Disorder of thyroid, unspecified; Z90.49 Acquired absence of other specified parts of digestive tract; Z90.710 Acquired absence of both cervix and uterus
CPT/HCPCS: 99284; 96374; 96375; 96361; 36415; 80053; 83605; 83690; 85025; 86140; 81001; 74177; J2270; J2405; Q9967

== ENCOUNTER 2022-03-15 08:46 | Day surgery (SDC) | payer MEDICARE ==
[2022-03-14 12:40] VITALS: BMI 26.6
--- NOTE | 2022-03-15 07:49 | P.GSHP ---
History of Present Illness H&P Date: 03/15/22 CHIEF COMPLAINT: Colon screen HISTORY OF PRESENT ILLNESS: The patient is a 66-year-old female who presents for colon screen. Lower endoscopy was offered for further evaluation and management. PAST MEDICAL HISTORY: Please see list. PAST SURGICAL HISTORY: Please see list. MEDICATIONS: Please see list. ALLERGIES: Please see list. SOCIAL HISTORY: No illicit drug use FAMILY HISTORY: No reports of Crohn disease or ulcerative colitis. REVIEW OF ORGAN SYSTEMS: CONSTITUTIONAL: No reports of fevers or chills. PHYSICAL EXAM: VITAL SIGNS: Stable GENERAL: Well-developed pleasant in no acute distress. HEENT: No scleral icterus. Extraocular movements grossly intact. Moist buccal mucosa. NECK: Supple without lymphadenopathy. CHEST: Unlabored respirations. Equal bilateral excursions. CARDIOVASCULAR: Regular rate and rhythm. Distal 2+ pulses. ABDOMEN: Soft, nontender, nondistended. MUSCULOSKELETAL: No clubbing, cyanosis, or edema. ASSESSMENT: 1. Colon screen. PLAN: 1. Recommend proceeding with a lower endoscopy Past Medical History Past Medical History: Hyperlipidemia, Osteoarthritis (OA), Thyroid Disorder Additional Past Medical History / Comment(s): insomnia, migraines, cataracts, thyroid nodules(thryoid removed), RLS, History of Any Multi-Drug Resistant Organisms: None Reported Past Surgical History: Appendectomy, Section, Hysterectomy Additional Past Surgical History / Comment(s): thyroid bx ,thyroidectomy, PARTIAL HYSTERECTOMY, LT KNEE SX, Past Anesthesia/Blood Transfusion Reactions: Motion Sickness, Postoperative Nausea & Vomiting (PONV) Additional Past Anesthesia/Blood Transfusion Reaction / Comment(s): CLAUSTROPHOBIA Smoking Status: Current every day smoker - Past Family History Mother Family Medical History: Cancer Additional Family Medical History / Comment(s): Alive, 95 yrs old. Father Family Medical History: No Reported History Additional Family Medical History / Comment(s): at age 89. Sister(s) Family Medical History: Cancer Additional Family Medical History / Comment(s): "Hx cancerous cells." Medications and Allergies Home Medications Medication Instructions Recorded Confirmed Type Atorvastatin [Lipitor] 20 mg PO HS 05/14/17 03/14/22 History traZODone HCL 200 mg PO HS 05/14/17 03/14/22 History Vit C/E/Zn/Coppr/Lutein/Zeaxan 1 each PO DAILY 11/18/19 03/14/22 History [Preservision Areds 2 Softgel] traMADol HCL 50 mg PO HS 11/18/19 03/14/22 History Hydrocodone/Acetaminophen [[place] 1 each PO Q6HR PRN #15 tab 11/20/19 03/14/22 Rx 5-325] Levothyroxine Sodium [Levoxyl] 100 mcg PO DAILY 03/14/22 03/14/22 History Pramipexole [Mirapex] 0.25 mg PO HS 03/14/22 03/14/22 History Allergies Allergy/AdvReac Type Severity Reaction Status Date / Time Beta-Blockers AdvReac RAPHAEL/ASTHMA Verified 03/14/22 12:27 (Beta-Adrenergic Bloc ATTACK
[~2022-03-15 08:46] MED LIST changes: -DEXAMETHASONE SOD PHOS (MDV) 100 MG/10 ML VIAL ONE; -DEXAMETHASONE SOD PHOSPHATE 10 MG/ML 1 ML VIAL IV ONE; -EPINEPHrine (PF) 1 ML in SODIUM CHLORIDE 0.9% IRRIGATIO 3,000 ML IRRIGATION ONE; -HYDROcodone/APAP 5-325MG 1 EACH TAB PO ONE; -HYDROmorphone 0.5 MG/0.5 ML SYRINGE IVP PRN; -KETOROLAC 30 MG/ML 1 ML VIAL ONE; -LACTATED RINGERS 1,000 ML IV ONE; +LIDOCAINE 1% (10MG/ML) FOR IV START INTRADERMA PRN; -LIDOCAINE 1% 20 ML VIAL (10MG/ML) FOR IV START INTRADERMA ONE; -MIDAZOLAM 2 MG/2 ML VIAL IV PRN; -MIDAZOLAM 2 MG/2 ML VIAL ONE; -PROPOFOL 10 MG/ML 20 ML VIAL IV ONE; -SCOPOLAMINE 1.5MG/72HR PATCH TRANSDERM ONE; -ePHEDrine SULFATE/0.9% NACL/PF 50 MG/5 ML SYRINGE IV ONE; -fentaNYL (PF) 50 MCG/ML 2 ML AMP ONE
[2022-03-15 09:14] VITALS: TEMP 97.9
[2022-03-15] MEDS ORDERED: LIDOCAINE 1% INJ 10MG/ML (20 ML MDV) ONE (10:16)
[2022-03-15] MEDS ORDERED: PROPOFOL 10 MG/ML 20 ML VIAL IV ONE (10:16)
[2022-03-15 10:46] VITALS: RESP 16
--- NOTE | 2022-03-15 10:46 | P.PCN ---
Date of Procedure: 03/15/22 Description of Procedure: PREOPERATIVE DIAGNOSIS: Colonoscopy screening POSTOPERATIVE DIAGNOSIS: Tubular adenoma hepatic flexure Tubular adenoma ascending colon Sigmoid diverticulosis Arteriovenous malformation, OPERATION: Colonoscopy to the ileocecal valve and appendiceal orifice, cecum Colonoscopy with hot snare polypectomy SURGEON: Desi Tijerina MD. ANESTHESIA: MAC. INDICATIONS: The patient is an 66-year-old female who presents for first colonoscopy. Benefits and risks were described and informed consent was obtained. DESCRIPTION OF PROCEDURE: The patient had undergone Sutab prep. The patient had been brought into the operating room and laid in the left lateral decubitus position. After adequate intravenous sedation, the rectum was examined with 2% lidocaine jelly. Rectal tone was within normal limits. No external hemorrhoids were encountered. No lesions were palpated in the rectal vault. An Olympus colonoscope was advanced until the cecum, ileocecal valve and appendiceal orifice were clearly viewed. The prep was good. Sigmoid diverticulosis was encountered. Colonic polyps were found and removed. No evidence of focal colitis was found. Retroflexion of the scope demonstrated grade 1 internal hemorrhoids without active bleeding or inflammation. The colon was desufflated. The patient had tolerated the procedure well. Withdrawal time was over 6 minutes. FINDINGS: Aronchick preparation quality scale 2 (1-5) Internal hemorrhoids, grade 1 No external hemorrhoids Arteriovenous malformation of the cecum Sigmoid diverticulosis Removal of 2 polyps: - Snare polypectomy hepatic flexure, 5 mm tubulovillous adenoma polyp - Snare polypectomy ascending colon, 4 mm flat villous adenoma polyp No focal colitis. RECOMMENDATIONS: Repeat colonoscopy in 3 years, 2024 Plan - Discharge Summary Discharge Rx Participant: No New Discharge Prescriptions: Continue traZODone HCL 200 mg PO HS Atorvastatin [Lipitor] 20 mg PO HS traMADol HCL 50 mg PO HS Vit C/E/Zn/Coppr/Lutein/Zeaxan [Preservision Areds 2 Softgel] 1 each PO DAILY Hydrocodone/Acetaminophen [[place] 5-325] 1 each PO Q6HR PRN #15 tab PRN Reason: Pain Levothyroxine Sodium [Levoxyl] 100 mcg PO DAILY Albuterol Sulfate [Proair Respiclick] 90 mcg INHALATION DAILY Pramipexole [Mirapex] 0.25 mg PO HS Discharge Medication List Atorvastatin [Lipitor] 20 mg PO HS 05/14/17 [History] traZODone HCL 200 mg PO HS 05/14/17 [History] Vit C/E/Zn/Coppr/Lutein/Zeaxan [Preservision Areds 2 Softgel] 1 each PO DAILY 11/18/19 [History] traMADol HCL 50 mg PO HS 11/18/19 [History] Hydrocodone/Acetaminophen [[place] 5-325] 1 each PO Q6HR PRN #15 tab 11/20/19 [Rx] Levothyroxine Sodium [Levoxyl] 100 mcg PO DAILY 03/14/22 [History] Pramipexole [Mirapex] 0.25 mg PO HS 03/14/22 [History] Albuterol Sulfate [Proair Respiclick] 90 mcg INHALATION DAILY 03/15/22 [History] Follow up Appointment(s)/Referral(s): Desi Tijerina MD [STAFF PHYSICIAN] - 04/03/22 Patient Instructions/Handouts: Diverticulosis Diet (GEN), Diverticulosis (DC), Colorectal Polyps (GEN) Activity/Diet/Wound Care/Special Instructions: Repeat colonoscopy in 3 years, 2024 Discharge Disposition: HOME SELF-CARE
[2022-03-15 10:58] VITALS: BP 116/72; PULSE 70
== END 2022-03-15 11:13 | disposition home or self-care (01) ==
LOC: ORWHC2ENDO 08:46
PROVIDERS: ATTEND Surgery Plastic and Reconstructive Surgery
DX: Z12.11 Encounter for screening for malignant neoplasm of colon (principal); D12.2 Benign neoplasm of ascending colon; D12.3 Benign neoplasm of transverse colon; K57.30 Diverticulosis of large intestine without perforation or abscess without bleeding; K64.0 First degree hemorrhoids; Q27.39 Arteriovenous malformation, other site; E78.5 Hyperlipidemia, unspecified; M19.90 Unspecified osteoarthritis, unspecified site; E07.9 Disorder of thyroid, unspecified; G47.00 Insomnia, unspecified; G43.909 Migraine, unspecified, not intractable, without status migrainosus; H26.9 Unspecified cataract; G25.81 Restless legs syndrome; F40.240 Claustrophobia; F17.200 Nicotine dependence, unspecified, uncomplicated; E89.0 Postprocedural hypothyroidism; Z79.899 Other long term (current) drug therapy; Z79.890 Hormone replacement therapy; Z88.8 Allergy status to other drugs, medicaments and biological substances; Z90.49 Acquired absence of other specified parts of digestive tract; Z98.891 History of uterine scar from previous surgery; Z90.710 Acquired absence of both cervix and uterus; Z98.890 Other specified postprocedural states; Z97.2 Presence of dental prosthetic device (complete) (partial); Z80.9 Family history of malignant neoplasm, unspecified
CPT/HCPCS: 88305; 45385; J2001; J2704

== ENCOUNTER → 2022-08-17 | Outpatient (CLI) | payer MEDICARE ==
--- NOTE | 2022-08-20 15:57 | MM ---
Reason for Exam: Screening (asymptomatic). Last mammogram was performed 2 year(s) and 6 month(s) ago. Patient History: Menarche at age 13. First Full-Term at age 27. Hysterectomy at age 47. Postmenopausal. Risk Values: Cecily 5 year model risk: 1.8%. NCI Lifetime model risk: 6.9%. Prior Study Comparison: 11/19/2017 Bilateral Screening Mammogram, [facility]. 01/05/2019 Bilateral Diagnostic Mammogram, [facility]. 02/17/2020 Bilateral Screening Mammogram, [facility]. Tissue Density: The breast tissue is heterogeneously dense. This may lower the sensitivity of mammography. Findings: Analyzed By CAD. Benign round calcifications are within the anterior left breast. Couple of benign calcifications are within the right breast. No suspicious groups of microcalcifications, spiculated or lobular masses, architectural distortion or other secondary signs of malignancy are mammographically apparent. Overall Assessment: Benign, BI-RAD 2 Management: Screening Mammogram of both breasts in 1 year. A negative mammogram report should not preclude additional follow up of suspicious palpable abnormalities. Patient should continue monthly self breast exam. A clinical breast exam by your physician is recommended on an annual basis and results should be correlated with mammographic findings. Electronically signed and approved by: Venaktesh Verduzco D.O. Radiologis
== END | disposition home or self-care (01) ==
LOC: RADMAMWWP 06:50
PROVIDERS: ATTEND Family Medicine
DX: Z12.31 Encounter for screening mammogram for malignant neoplasm of breast (principal); Z78.0 Asymptomatic menopausal state
CPT/HCPCS: 77063; 77067

== ENCOUNTER → 2023-03-12 | Outpatient (CLI) | payer MEDICARE ==
--- NOTE | 2023-03-12 18:48 | CTL ---
EXAMINATION TYPE: CT Low Dose Lung DATE OF EXAM: 03/12/2023 6:15 PM CLINICAL INDICATION:Female, 67 years old with history of Z87.891 Personal History of Nicotine Depende nce; 1 PPD x40yrs. Family Hx of Lung CA. , history of tobacco use. COMPARISON: None. TECHNIQUE: Multiple axial non-contrast scans were obtained from approximately the lung apices through the upper abdomen. Coronal and sagittal reformatted images were obtained. Low dose technique was uti lized. CT DLP: 88.1 mGycm, Automated exposure control for dose reduction was used. CT Contrast: Contrast used: None Oral contrast used: None FINDINGS: ======== Lack of intravenous contrast and low dose technique limits the evaluation of the vascular and soft ti ssue structures. LUNGS: No evidence of pulmonary fibrosis. No evidence of focal consolidation, pneumothorax or pleural effusion. Mild paraseptal emphysema changes and centrilobular emphysema changes are seen throughout the lungs. Nodules: RUL: Intrafissural lymph node series 5 image 30 on the right. RML: None. RLL: None. ANA CRISTINA: None. LLL: None. AIRWAY: Patent and unremarkable. HEART: Size within normal limits. Mild coronary artery atherosclerosis. Mild atherosclerosis of the a rterial vasculature. MEDIASTINUM: No gross evidence of adenopathy. VASCULATURE: No aortic aneurysm. MUSCULOSKELETAL: No acute osseous abnormalities SOFT TISSUES/LYMPH NODES: Unremarkable. LOWER NECK: No significant findings. UPPER ABDOMEN: No significant findings. IMPRESSION: 1. No clinically significant pulmonary nodules. 2. Mild emphysema CT LUNG RAD AND CT CHEST RECOMMENDATION: Lung-Rad 2 Benign Appearance or Behavior: Continue annual sc reening with LDCT in 12 months. S Modifier (other clinically significant findings): None Recommend smoking cessation (if current smoker), or continuation of smoking cessation (if prior smoke r). Annual screening for lung cancer with low-dose computed tomography is recommended in adults ages 55 to 77 years who have a 30 pack-year smoking history and currently smoke or have quit within the pa st 15 years. Screening should be discontinued once a person has not smoked for 15 years or develops a health problem that substantially limits life expectancy or the ability or willingness to have [place] lung surgery. Lung rads 2021 [email or web address]
== END | disposition home or self-care (01) ==
LOC: RADCTMAIN 17:39
PROVIDERS: ATTEND Family Medicine
DX: Z12.2 Encounter for screening for malignant neoplasm of respiratory organs (principal); J43.2 Centrilobular emphysema; F17.210 Nicotine dependence, cigarettes, uncomplicated
CPT/HCPCS: 71271